=== PATIENT | male | born 1940 | race Caucasian/White ===

== ENCOUNTER 2022-03-26 08:54 | Outpatient (RCR) | payer MEDICARE, SELFPAY ==
--- NOTE | 2022-03-26 09:31 | PTOPEVAL ---
Thank you for referring Aravind Ross to [facility].? The patient is scheduled to be seen for therapy? __2__x/week for 10 visits. Please review, sign, date and return this plan of care VINICIUS. I agree with and certify that the following plan of care is medically necessary. 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 reports that he underwent Query Text:As Reported By Patient/ surgery about 4 weeks. He Family reports that he is experiencing mild left shoulder pain since surgery. He reports that he has not been wearing his sling. He reports that he is sleeping in a lift chair and has not trouble with sleep. [place] and was very active before [facility]. He reports that his goal is to be able to use the left arm nromally. Prior Level of Function Activity Level (Last 3 Months) Occupation retired Hand Dominance Left Activity of Daily Living Ability Independent Indoor/Home Mobility Independent Community Mobility Independent Stairs Ability Independent Functional Cognition (Planning, Shopping Independent , Taking Medications) Cooking Yes Cleaning Yes Laundry Yes Shopping Yes Driving Yes Pain Assessment Timing of Pain Assessment Timing of Pain Assessment Pre-Treatment Pain Scale Pain Scale Used Numeric (1 - 10) Self Report Pain Assessment Left Shoulder(s) Reported Pain Level 1 Pain Description Aching Pain Score Pain Score 1: Self Report Interventions Used Interventions Used By Clinicians Electrical Stimulation, Exercise,Heat Upper Extremity Range of Motion General Upper Extremity Range of Motion Gross Upper Extremity Range of Motion -passive left shoulder flexion Comments 110 degrees
--- NOTE | 2022-04-27 12:58 | PTOPEVAL1 ---
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 He is progressing slowly with PT and is feeling better about his range of motion as time goes on. He sees his MD 04/30/22. Reported Pain Level Pain Score 2: Self Report Plan of Care PT Services Indicated Yes These treatments will address the objective and functional deficits as defined above. The patient will be advanced safely and appropriately in order for the patient to progress towards his/her prior level of function. Additional exercises will be introduced and as well as a comprehensive home exercise program upon discharge, if needed, ?to ensure carryover of functional gains achieved in the clinic. This treatment plan has been reviewed and agreement upon by the patient.
--- NOTE | 2022-05-25 10:06 | PTOPDC ---
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 he reports the L shoulder really does not bother him that much, but reports the R shoulder continues to cause him pain. he reports he is considering getting the R shoulder replaced as well. Reported Pain Level Pain Score 0: Self Report Assessment PT Clinical Summary mr saunders presents to skilled PT services for his 18th skilled PT visit. as of this date, he displays no pain, improved rom, and improved strength in the L shoulder. he has met more than 75% of goals for skilled PT. although he does continue to display some decreased L shoulder passive and active rom from goals, patient reports he is not limited in his daily activities at home , and is happy with his shoulder. he was educated in additional shoulder strengthening exercises to add to his rom and strength routine at home, and patient will DC therapy as of this date. Plan of Care Treatment Frequency and DC to independent HEP Duration
== END 2022-05-25 10:28 | disposition home or self-care (01) ==
LOC: CHSPT 08:54
PROVIDERS: PCP Family Medicine
DX: M19.212 Secondary osteoarthritis, left shoulder (principal); Z96.612 Presence of left artificial shoulder joint
CPT/HCPCS: 97014; 97110; 97161; 97530; G0283